=== PATIENT | female | born 1950 | race Caucasian/White ===

== ENCOUNTER 2017-11-22 10:32 | Emergency (ER) | payer OTHER ==
--- OUTSIDE RECORDS SUMMARY | 2017-11-22 10:34 | XMS REPORT | Continuity of Care Document ---
:1950 Author Organization Interface Problems Problem Status Onset Classification Date Comments Source Date Reported M25.561 - PAIN Active 10/27/19 [facility] IN RIGHT KNEE 17 [facility] M25.562 - P F17.200 - Active 11/30/19 [facility] "NICOTINE 16 [place] DEPENDENCE, UNSPECIF Z86.79 - Active 10/20/19 [facility] PERSONAL HISTORY 16 [place] OF OTHER DISE R41.82 - Active 09/14/19 [facility] "ALTERED MENTAL 16 [place] STATUS, UNSPECI 719.40 - JOINT Active 09/18/19 [facility] PAIN-UNSP 15 [place] CHRONIC PAIN Active 02/24/19 Condition 02/24/2014 [facility] SYNDROME 15 [facility] Chronic pain Active 02/24/19 Problem 10/29/2016 Data migrated [facility] syndrome<sup>1 from [facility] sup> Centricity on SMR 10/07/14. [facility] TAMERA Burgos SACROILIITIS, Active 01/22/20 Condition 02/24/2014 [facility] NOT ELSEWHERE 14 Neuro CLASSIFIED LUMBOSACRAL Active 01/22/20 Condition 02/24/2014 [facility] SPONDYLOSIS 14 Neuro WITHOUT MYELOPATHY Lumbosacral Active 01/22/20 Problem 10/29/2016 Data migrated [facility] spondylosis 14 from [facility] without Centricity on SMR myelopathy<sup>4 10/07/14. [place] </sup> [facility] OP[facility] Aubrey 724.4 - Active 01/16/20 [facility] LUMBOSACRAL JOSE CRUZ 14 [place] 953.5 - Active 01/01/20 [facility] LUMBOSACRAL PLE 14 [facility] KIMOD Sammy INJURY TO Active 12/28/19 Condition 02/24/2014 [facility] LUMBOSACRAL 14 Neuro PLEXUS LOW BACK PAIN Active 12/28/19 Condition 02/24/2014 [facility] 14 Neuro LUMBAR Active 12/28/19 Condition 02/24/2014 [facility] RADICULOPATHY 14 Neuro TOBACCO USER Active 12/28/19 Condition 02/24/2014 [facility] 14 Neuro Low back Active 12/28/19 Problem 10/29/2016 Data migrated [facility] pain<sup>2</sup> 14 from [facility] Centricity on SMR 10/07/14. [facility] [place]rey Lumbar Active 12/28/19 Problem 10/29/2016 Data migrated [facility] radiculopathy<cabral 14 from [facility], p>3</sup> Centricity on SMR 10/07/14. [facility] [place] Tobacco Active 12/28/19 Problem 10/29/2016 Data migrated [facility] user<sup>5</sup> 14 from [facility] Centricity on SMR 10/07/14. [facility] [place] RT HAND NERVE Active [facility] DAMAGE SX [id number] [facility] RT HAND INJURY Active [facility] LACERATION TO Active [facility] THE RT PALMAR [facility] Medications Medication Details Route Status Patient Ordering Order Source Instructions Provider Date MOBIC 7.5 MG TABS 1 tablet Active [facility] daily 015 Neuro GABAPENTIN 300 MG take one Active [facility] CAPS tab po qhs 014 Neuro x 3 nights, then one tab po bid x 3 days, then one tab po tid (has not yet taken the medication ) ADULT ONE DAILY Active [facility] GUMMIES CHEW 014 Neuro ALEVE TABS Active [facility] 014 Neuro ACETA-GESIC TABS Active [facility] 014 Neuro AMOXICILLIN CAPS Active [facility] 014 Neuro LEVOTHYROXINE qd Active [facility] SODIUM TABS 014 Neuro LEXAPRO 20 MG TABS qd Active [facility] 014 Neuro PROGESTERONE qd Active [facility] MICRONIZED 100 MG 014 Neuro CAPS VIVELLE-DOT PTTW bid Active [facility] 014 Neuro FLUDROCORTISONE every Active [facility] ACETATE 0.1 MG other day 014 Neuro TABS NEXIUM PACK qd Active [facility] 014 Neuro ADVIL PM TABS 2 to 3 Active [facility] daily 014 Neuro Allergies, Adverse Reactions, Alerts Substance Category Reaction Severity Reaction Status Date Comments Source type Reported ERYTHROMYCIN Drug ERYTHROMYCI [facility] allergy N 4 Neuro erythromycin Assertion Drug Active Data [facility] <sup>1</sup> allergy 4 migrated Sammy from [employer] on 10/06/14. Originally documented as ERYTHROMYC IN. Immunizations Immunization Date Given Site Status Last Updated Comments Source Results Order Name Results Value Reference Date Interpretation Comments Source Range Ankle 3 Ankle 3 EXAM: XR RIGHT ANKLE 3 VIEWS 10/26 - [facility] views DX views /2016 - [place] EXAM: XR RIGHT FOOT 3 VIEWS This report was dictated by a Supervisor Warping Department/Fellow. I have personally reviewed the images as well as the Resident's interpretation and agree with the findings. Read by: Pepe Fernández DO Resident: Pepe Fernández DO Dictated Date/time: 10/26/16 12:22 DATE: 10/26/2016 11:39 AM CDT Electronically Signed by: Tameka Harris MD 10/26/16 16:19 FINAL REPORT INDICATION: M25.561 Pain in right knee COMPARISON: None. TECHNIQUE: AP, oblique internal rotation and lateral radiographs of the ankle and foot UT SECTION: MSK FINDINGS: No acute fracture or malalignment is identified. No erosions, periostitis or ankylosis. Plantar calcaneal enthesophyte is present. Bipartite medial hallux sesamoid and os peroneum are incidentally noted. The ankle mortise is congruent. No soft tissue abnormality is identified. IMPRESSION: 1. No radiographic evidence of inflammatory arthropathy. 2. No acute fractures or malalignment of the right ankle and foot. 3. Small plantar enthesophyte. Knee 3 Knee 3 EXAM: XR BILATERAL KNEE 3 VIEWS 10/26 - [facility] Views Views /2016 - [place] Bilateral Bilateral This report was dictated by a Supervisor Warping Department/ Fellow. I have personally reviewed the images as DX DX well as the Resident's interpretation and agree with the findings. DATE: 10/26/2016 11:34 AM CDT Read by: Pepe Fernández DO Resident: Pepe Fernández DO Dictated Date/time: 10/26/16 12:36 Electronically Signed by: Tameka Harris MD 10/26/16 16:12 FINAL REPORT INDICATION: M25.561 Pain in right knee / M25.562 Pain in left knee COMPARISON: None. TECHNIQUE: Weightbearing standing AP, sunrise and lateral radiographs of both knees UT SECTION: MSK FINDINGS: Right knee: No erosions, periostitis or ankylosis seen. No acute fracture or malalignment is identified. Joint spaces are preserved. No knee joint effusion is present on either side. No soft tissue abnormality is identified. Left knee: No acute fracture or malalignment is identified. Joint spaces are preserved. No knee joint effusion is present on either side. No soft tissue abnormality is identified. IMPRESSION: 1. No radiographic evidence of inflammatory arthropathy. 2. No joint effusion. Foot Foot EXAM: XR RIGHT ANKLE 3 VIEWS 10/26 - [facility] series DX series Sammy EXAM: XR RIGHT FOOT 3 VIEWS This report was dictated by a Supervisor Warping Department/Fellow. I have personally reviewed the images as well as the Resident's interpretation and agree with the findings. Read by: Pepe Fernández DO Resident: Pepe Fernández DO Dictated Date/time: 10/26/16 12:22 DATE: 10/26/2016 11:39 AM CDT Electronically Signed by: Tameka Harris MD 10/26/16 16:19 FINAL REPORT INDICATION: M25.561 Pain in right knee COMPARISON: None. TECHNIQUE: AP, oblique internal rotation and lateral radiographs of the ankle and foot UT SECTION: MSK FINDINGS: No acute fracture or malalignment is identified. No erosions, periostitis or ankylosis. Plantar calcaneal enthesophyte is present. Bipartite medial hallux sesamoid and os peroneum are incidentally noted. The ankle mortise is congruent. No soft tissue abnormality is identified. IMPRESSION: 1. No radiographic evidence of inflammatory arthropathy. 2. No acute fractures or malalignment of the right ankle and foot. 3. Small plantar enthesophyte. Hand 3 Hand 3 EXAM: XR BILATERAL HAND 4 VIEWS 10/26 - [facility] views /2016 - [place] Bilateral Bilateral This report was dictated by a Supervisor Warping Department/ Fellow. I have personally reviewed the images as DX DX well as the Resident's interpretation and agree with the findings. 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 UT SECTION: MSK FINDINGS: No acute fracture or malalignment is identified. Bone mineral density are preserved. 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 Mild scattered degenerative changes of interphalangeal joints, most marked in the left second DIP. No periostitis, erosion or ankylosis is present. No soft tissue abnormality is identified. No radiopaque foreign bodies are present. IMPRESSION: 1. No acute radiographic evidence of inflammatory arthropathy. 2. No significant change in bilateral triscaphe joint osteoarthrosis. Brain wo Brain wo EXAM: MRI BRAIN WITHOUT CONTRAST 10/12 - [facility] contrast contrast /2015 - [place] MRI MRI DATE: 10/13/2015 1:25 PM CDT Read by: Charlotte Rudolph MD Dictated Date/time: 10/13/15 15:58 Electronically Signed by: Charlotte Rudolph MD 10/13/15 16:05 FINAL REPORT INDICATION: R41 ALTERED MENTAL STATUS UNSPECIFIED, R42 DIZZINESS AND GIDDINESS COMPARISON: None. TECHNIQUE: Multiplanar, muti sequence MRI of the brain without contrast. IV contrast: None. FINDINGS: No restricted diffusion to suggest recent ischemia. No recent intracranial hemorrhage or mass effect. No extra-axial fluid collections. Foci of T2 and FLAIR hyperintense signal abnormality in the suprat entorial white matter are nonspecific but may represent mild chronic microangiopathic change. Punctate focus of susceptibility in the left parietotemporal region may represent a chronic microhemorrhage. Mild generalized cerebral volume loss with compensatory enlargement of ventricles and sulci. The basal cisterns are patent. The major intracranial flow voids are preserved. The midline structures are u nremarkable. Cerebellar tonsils are normal in position. The orbits and mastoids are unremarkable. Nasal septal deviation to the right. Rightward projecting nasal septal spur has a contact point with the right inferior turbinate. IMPRESSION: 1. No acute intracranial abnormality. 2. Mild generalized cerebral volume loss. Mild chronic microangiopathic change. 3. Nasal septal deviation to the right with a rightward projecting nasal septal spur exiting the right inferior turbinate. Hand 3 Hand 3 EXAM: XR BILATERAL HAND 3 VIEWS 09/17 - [facility] views views /2014 - [place] Bilateral Bilateral DX DX DATE: 09/17/2014 at 1126 hours Read by: Tyra Urban MD Dictated Date/time: 09/17/14 12:36 Electronically Signed by: Tyra Urban MD 09/17/14 12:38 FINAL REPORT INDICATION: 719.40 Pain in Joint, Site Unspecified COMPARISON: None available. TECHNIQUE: PA, lateral and oblique radiographs of the bilateral hands FINDINGS: No fracture, dislocation or other acute bony abnormality is identified. There is moderate joint space narrowing, sclerosis and cystic change at the triscaphe articulation on the left, and sev ere narrowing on the right. Mild interphalangeal joint space narrowing is present with tiny osteophytes at the DIP joints bilaterally. No erosions are identified. Soft tissues are within normal limits. 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 Mild interphalangeal joint narrowing. Pelvis wo Pelvis wo Examination: MRI of the pelvis without contrast 03/03 [facility] contrast contrast /2014 - [place] [facility] MRI History: 338.4 Chronic Pain Syndrome Read by: Koby Lindsey MD Dictated Date/time: 03/03/14 14:45 Electronically Signed by: Koby Lindsey MD 03/03/14 14:55 FINAL REPORT Comparison: None. TECHNIQUE: Multiplanar, multisequence magnetic resonance imaging of the pelvis was performed without administration of intravenous gadolinium contrast. Findings: No acute bony fracture, joint dislocation, or stress-related marrow edema is seen. No suspicious osseous lesions are noted. The hips, symphysis, and sacroiliac joints are unremarkable. Moderat e to severe facet arthrosis in the visualized lower lumbar spine is seen. There is subtle patchy STIR hyperintensity of the visualized right paraspinous musculature at the level of the sacrum. The remaining muscles and tendons about the pelvis are intact. The gluteal tendons, iliopsoas tendon insertions, and hamstring tendons are intact. No extracapsular mass or bursal fluid collection is seen. Limited views of the pelvic organs show no focal abnormality. IMPRESSION: 1. Subtle signal abnormality of the right paraspinous musculature at the level of the sacrum. This is of indeterminate significance and may be iatrogenic. Other considerations may also include low grade strains or contusions. SL: 16 Hip wo Hip wo Examination: MRI of the right hip without contrast 03/03 - [facility] contrast contrast /2014 - [place] [facility] MRI History: 338.4 Chronic Pain Syndrome Read by: Koby Lindsey MD Dictated Date/time: 03/03/14 14:51 Electronically Signed by: Koby Lindsey MD 03/03/14 14:54 FINAL REPORT Comparison: MRI of the pelvis performed the same day. TECHNIQUE: Multiplanar, multisequence magnetic resonance imaging of the right hip was performed without administration of intravenous gadolinium contrast. Findings: Anatomic alignment is maintained across the right hip. No acute bony fracture, joint dislocation, or stress-related marrow edema is seen. There is no evidence of osteonecrosis of the femoral h ead. Physiologic right hip joint fluid is seen. No acetabular labral tear is seen. Focal high-grade chondral fissuring of the superior acetabulum is seen measuring 5 mm AP dimension and 6 mm transversel y. The ligamentum teres and transverse ligament are intact. The gluteal tendons, iliopsoas tendon insertion, and hamstring tendon at the origin are intact. No extracapsular mass or bursal fluid collection is seen. Limited views of the pelvic organs show no focal abnormality. IMPRESSION: 1. Focal high-grade chondral fissuring of the superior acetabular measuring 5 x 6 mm. SL: 16 Vital Signs Vital Sign Value Date Comments Source Systolic (mm Hg) 126 02/24/2014 [facility] Diastolic (mm Hg) 73 02/24/2014 [facility] Weight 160 02/24/2014 [facility] Height 65 02/24/2014 [facility] Heart Rate 73 02/24/2014 [facility] Temperature Oral (F) 98.4 F 02/24/2014 [facility] Systolic (mm Hg) 133 01/21/2014 [facility] Diastolic (mm Hg) 78 01/21/2014 [facility] Heart Rate 70 01/21/2014 [facility] Temperature Oral (F) 98.1 F 01/21/2014 [facility] Weight 159.2 01/15/2014 [facility] Systolic (mm Hg) 108 01/15/2014 [facility] Diastolic (mm Hg) 68 01/15/2014 [facility] Height 65 01/15/2014 [facility] Temperature Oral (F) 98.4 F 01/15/2014 [facility] Heart Rate 81 01/15/2014 [facility] Weight 157.8 01/15/2014 [facility] Height 65 01/15/2014 [facility] Temperature Oral (F) 97.7 F 01/15/2014 [facility] Heart Rate 86 01/15/2014 [facility] Systolic (mm Hg) 112 01/15/2014 [facility] Diastolic (mm Hg) 72 01/15/2014 [facility] Respitory Rate 16 01/15/2014 [facility] Weight 153.0 12/27/2013 [facility] Height 65 12/27/2013 [facility] Temperature Oral (F) 97.9 F 12/27/2013 [facility] Heart Rate 69 12/27/2013 [facility] Systolic (mm Hg) 119 12/27/2013 [facility] Diastolic (mm Hg) 68 12/27/2013 [facility] Respitory Rate 16 12/27/2013 [facility] Encounters Location Location Encounter Encounter Reason Attending ADM DC Status Source Details Type Number For Provider Date Date Visit [facility] [id number] Frederick 12/27 12/27 [facility] Visit [address] EDGAR /2013 Neuro [facility] Report [id number] Frederick 01/05 01/05 Renuka Christianson [address] EDGAR /2013 [facility] [id number] Frederick 01/15 01/15 [facility] Visit 9[address] EDGAR /2013 [facility] [id number] Frederick 01/21 01/21 [facility] Procedure 76[address] EDGAR /2013 [facility] Di[facility] [id number] Frederick 01/21 01/22 [facility] G[facility] /2013 [facility] [id number] Frederick 02/24 02/24 [facility] Visit 12[address] EDGAR /2014 [facility] [id number] Jessica 03/03 03/04 [facility] [place] [facility] [id number] Mariana 09/17 09/18 [facility] Outpatient [facility] [place] /2014 [place] [facility] [place] [facility] [id number] Michael 12/10 01/09 [facility] [place] [facility] [place] /2014 [facility] OP Therapy [id number] Michael 01/09 02/08 [facility] [place] [facility] [place] /2014 [facility]MR OP Therapy [id number] Michael 02/18 03/20 S[facility] [place] [facility] [place] /2015 [facility] Outpt Diag [id number] Azul 10/12 10/13 [facility] Outpatient Services Krell /2015 [facility] Outpt Diag [id number] Gemini 10/26 10/27 [facility] Outpatient Services [facility] /2016 [facility] Outpatient [id number] AZUL 02/14 Active [facility] /2017 [place] [facility] [id number] AZUL 05/05 Active [facility] /2017 [facility] Outpatient [id number] AZUL 08/04 Active [facility] /2017 [place] Outpatient [id number] AZUL 11/10 Active [facility] /2017 [place] Outpatient [id number] AZUL 03/23 Active [facility] /2018 [place] Procedures Procedure Code Date Perfomer Comments Source smoking/tobacco 14 02/24/2014 yes [facility] cessation, patient education and counseling smoking/tobacco 14 01/15/2014 no [facility] cessation, patient education and counseling smoking/tobacco 14 12/27/2013 yes [facility] cessation, patient education and counseling
--- OUTSIDE RECORDS SUMMARY | 2017-11-22 10:35 | XMS REPORT | Continuity of Care Document ---
:1950 Author Organization [facility] Care Team Providers Name Role Phone Frederick Farah MD Unavailable Insurance Providers Payer name Policy type / Policy ID Covered constitution party ID Policy [place] Coverage type [place]IC[place] [employer] (INDEMNITY) Encounters Encounter Performer Location Date Office Visit Frederick Farah MD [facility] Jan 15, 2014 Allergies, Adverse Reactions, Alerts Type Substance Reaction Status Drug allergy ERYTHROMYCIN Active Problems Problem Effective Dates Problem Status INJURY TO LUMBOSACRAL PLEXUS Dec 27, 2013 Active LOW BACK PAIN Dec 27, 2013 Active LUMBAR RADICULOPATHY Dec 27, 2013 Active TOBACCO USER Dec 27, 2013 Active Procedures Date Description Comments Dec 26, 2013 smoking status current every day smoker Dec 27, 2013 smoking status Current every day smoker Dec 27, 2013 smoking/tobacco cessation, patient education yes and counseling Jan 15, 2014 smoking status Current every day smoker Jan 15, 2014 smoking/tobacco cessation, patient education no and counseling Jan 15, 2014 smoking status Current every day smoker Medications Medication Instructions Start Date Status LEVOTHYROXINE SODIUM TABS qd Dec 27, 2013 Active LEXAPRO 20 MG TABS qd Dec 27, 2013 Active PROGESTERONE MICRONIZED 100 MG CAPS qd Dec 27, 2013 Active VIVELLE-DOT PTTW bid Dec 27, 2013 Active FLUDROCORTISONE ACETATE 0.1 MG TABS every other day Dec 27, 2013 Active NEXIUM PACK qd Dec 27, 2013 Active ADVIL PM TABS 2 to 3 daily Dec 27, 2013 Active ADULT ONE DAILY GUMMIES CHEW Jan 15, 2014 Active ALEVE TABS Jan 15, 2014 Active ACETA-GESIC TABS Jan 15, 2014 Active AMOXICILLIN CAPS Jan 15, 2014 Active Vital Signs Date Description Test Result Dec 27, 2013 weight E&M - 3141-9 WEIGHT 153.0 lb Dec 27, 2013 height E&M - 8302-2 HEIGHT 65 in Dec 27, 2013 temperature E&M TEMPERATURE 97.9 deg f Dec 27, 2013 pulse rate E&M - 8867-4 PULSE RATE 69 /min Dec 27, 2013 blood pressure, systolic - 8480-6 BP SYSTOLIC 119 mm Hg Dec 27, 2013 blood pressure, diastolic - 8462-4 BP DIASTOLIC 68 mm Hg Dec 27, 2013 respiratory rate E&M - 9279-1 RESP RATE 16 /min Jan 15, 2014 weight E&M - 3141-9 WEIGHT 157.8 lb Jan 15, 2014 height E&M - 8302-2 HEIGHT 65 in Jan 15, 2014 temperature E&M TEMPERATURE 97.7 deg f Jan 15, 2014 pulse rate E&M - 8867-4 PULSE RATE 86 /min Jan 15, 2014 blood pressure, systolic - 8480-6 BP SYSTOLIC 112 mm Hg Jan 15, 2014 blood pressure, diastolic - 8462-4 BP DIASTOLIC 72 mm Hg Jan 15, 2014 weight E&M - 3141-9 WEIGHT 159.2 lb Jan 15, 2014 blood pressure, systolic - 8480-6 BP SYSTOLIC 108 mm Hg Jan 15, 2014 blood pressure, diastolic - 8462-4 BP DIASTOLIC 68 mm Hg Jan 15, 2014 height E&M - 8302-2 HEIGHT 65 in Jan 15, 2014 temperature E&M TEMPERATURE 98.4 deg f Jan 15, 2014 pulse rate E&M - 8867-4 PULSE RATE 81 /min Jan 15, 2014 respiratory rate E&M - 9279-1 RESP RATE 16 /min
--- OUTSIDE RECORDS SUMMARY | 2017-11-22 10:35 | XMS REPORT | Summary of Care ---
:1950 Author Organization [facility] Encounter HQ Encntr_loretta(FIN) [id number] Date(s): 02/18/15 - 03/19/15 [facility] Discharge Disposition: Home Attending Physician: Michael Louie MD Vital Signs No data available for this section Problem List Condition Effective Dates Status Health Status Informant Chronic pain syndrome1 02/24/14 Active Low back pain2 12/27/13 Active Lumbar radiculopathy3 12/27/13 Active Lumbosacral spondylosis without 01/21/14 Active myelopathy4 Tobacco user5 12/27/13 Active 1Data migrated from [employer] on 10/07/14.2Data migrated from [employer] on 10/07/14.3Data migrated from [employer] on 10/07/14.4Data migrated from [employer] on 10/07/14.5Data migrated from [employer] on 10/07/14. Allergies, Adverse Reactions, Alerts Substance Reaction Severity Status erythromycin1 Active 1Data migrated from [employer] on 10/06/14. Originally documented as ERYTHROMYCIN. Medications No data available for this section Results No data available for this section Immunizations No data available for this section Procedures No data available for this section Social History No data available for this section Assessment and Plan No data available for this section
--- OUTSIDE RECORDS SUMMARY | 2017-11-22 10:35 | XMS REPORT | Summary of Care ---
:1950 Author Encounter HQ Gustavontr_michaelnita(ANTON) [id number] Date(s): 01/21/14 - 01/21/[address] [facility] Outpatient Imaging [facility] [address] [place] [address] Discharge Disposition: Home Physician Attending: Frederick Farah MD Reason for Visit 724.4 - LUMBOSACRAL JOSE CRUZ Problem List No data available for this section Allergies, Adverse Reactions, Alerts No data available for this section Medications No data available for this section Medications Administered During Your Visit No data available for this section Immunizations No data available for this section
--- OUTSIDE RECORDS SUMMARY | 2017-11-22 10:35 | XMS REPORT | Continuity of Care Document ---
:1950 Author Organization [facility] Care Team Providers Name Role Phone Frederick Farah MD Unavailable Insurance Providers Payer name Policy type / Policy ID Covered republican ID Policy [place] Coverage type [place] [employer] (INDEMNITY) Encounters Encounter Performer Location Date Office Visit Frederick Farah MD [facility] [place] [facility] Jan 15, 2014 Allergies, Adverse Reactions, [...] smoking/tobacco cessation, patient education no and counseling Medications Medication Instructions Start Date Status LEVOTHYROXINE [...]
--- OUTSIDE RECORDS SUMMARY | 2017-11-22 10:35 | XMS REPORT | Summary of Care ---
:1950 Author Organization [facility] Outpatient Imaging - [facility] Address [address] [place] [id number]- Encounter HQ Encntr_alias(FIN) [id number] Date(s): 10/13/15 - 10/13/15 [facility] Outpatient Imaging - [address] [place] [address]- Discharge Disposition: Home or Self Care Attending Physician: Nash Stern MD Vital Signs No data available for [...]
--- OUTSIDE RECORDS SUMMARY | 2017-11-22 10:35 | XMS REPORT | Continuity of Care Document ---
:1950 Author Organization [facility] Care Team Providers Name Role Phone Frederick Farah MD Unavailable Insurance Providers Payer name Policy type / Policy ID Covered alliance party ID Policy [place] Coverage type [place] [employer] (INDEMNITY) Encounters Encounter Performer Location Date Office Visit Frederick Farah MD [facility] [place] Dec 27, 2013 Allergies, Adverse Reactions, Alerts Type Substance Reaction [...] smoking/tobacco cessation, patient education yes and counseling Medications Medication Instructions Start Date [...] to 3 daily Dec 27, 2013 Active Vital Signs Date Description Test Result [...]
--- OUTSIDE RECORDS SUMMARY | 2017-11-22 10:35 | XMS REPORT | Continuity of Care Document ---
:1950 Author Organization [facility] Care Team Providers Name Role Phone Gagan EDGAR, Frederick Bryant Unavailable Insurance Providers Payer name Policy type / Policy ID Covered constitution party ID Policy [place] Coverage type [place] [employer] (INDEMNITY) Encounters Encounter Performer Location Date Lab Report Frederick Farah MD [facility] - Jan 05, 2014 [place] Allergies, Adverse Reactions, Alerts Type Substance Reaction [...]
--- OUTSIDE RECORDS SUMMARY | 2017-11-22 10:35 | XMS REPORT | Summary of Care ---
:1950 Author Organization [facility] Outpatient Imaging [place] Address [address] [place], [place] [address]- Encounter HQ Encntr_alias(FIN) [id number] Date(s): 10/26/16 - 10/26/16 [facility] Outpatient Imaging [address] [address]- [phone] Discharge Disposition: Home or Self Care Attending Physician: Gemini Chang MD Vital Signs No data available for [...]
--- OUTSIDE RECORDS SUMMARY | 2017-11-22 10:35 | XMS REPORT | Continuity of Care Document ---
:1950 Author Organization [facility] Care Team Providers Name Role Phone Frederick Farah MD Unavailable Insurance Providers Payer name Policy type / Policy ID Covered alliance party ID Policy [place] Coverage type [place] [employer] (INDEMNITY) Encounters Encounter Performer Location Date Office Visit Frederick Farah MD [facility] [place] Feb 24, 2014 Allergies, Adverse Reactions, Alerts Type Substance Reaction Status Drug allergy ERYTHROMYCIN Active Problems Problem Effective Dates Problem Status INJURY TO LUMBOSACRAL PLEXUS Dec 27, 2013 Active LOW BACK PAIN Dec 27, 2013 Active LUMBAR RADICULOPATHY Dec 27, 2013 Active TOBACCO USER Dec 27, 2013 Active SACROILIITIS, NOT ELSEWHERE CLASSIFIED Jan 21, 2014 Active LUMBOSACRAL SPONDYLOSIS WITHOUT MYELOPATHY Jan 21, 2014 Active CHRONIC PAIN SYNDROME Feb 24, 2014 Active Procedures Date Description Comments Dec 26, 2013 smoking status current every day smoker Dec 27, 2013 smoking status Current every day smoker Dec 27, 2013 smoking/tobacco cessation, patient education yes and counseling Jan 15, 2014 smoking status Current every day smoker Jan 15, 2014 smoking/tobacco cessation, patient education no and counseling Jan 15, 2014 smoking status Current every day smoker Feb 24, 2014 smoking status Current every day smoker Feb 24, 2014 smoking/tobacco cessation, patient education yes and counseling Medications Medication Instructions Start Date Status LEVOTHYROXINE SODIUM TABS qd Dec 27, 2013 Active LEXAPRO 20 MG TABS qd Dec 27, 2013 Active PROGESTERONE MICRONIZED 100 MG qd Dec 27, 2013 Active CAPS VIVELLE-DOT PTTW bid Dec 27, 2013 Active FLUDROCORTISONE ACETATE 0.1 MG every other day Dec 27, 2013 Active TABS NEXIUM PACK qd Dec 27, 2013 Active ADVIL PM TABS 2 to 3 daily Dec 27, 2013 Active ADULT ONE DAILY GUMMIES CHEW Jan 15, 2014 Active ALEVE TABS Jan 15, 2014 Active ACETA-GESIC TABS Jan 15, 2014 Active AMOXICILLIN CAPS Jan 15, 2014 Active GABAPENTIN 300 MG CAPS take one tab po qhs x 3 nights, Jan 29, 2014 Active then one tab po bid x 3 days, then one tab po tid (has not yet taken the medication) MOBIC 7.5 MG TABS 1 tablet daily Feb 24, 2014 Active Vital Signs Date Description Test Result Dec 27, 2013 weight Lakesha - 3141-9 WEIGHT 153.0 lb Dec 27, [...] RATE 16 /min Jan 15, 2014 weight Lakesha - 3141-9 WEIGHT 157.8 lb Jan 15, [...] 72 mm Hg Jan 15, 2014 weight Rory&Mary - 3141-9 WEIGHT 159.2 lb Jan 15, [...] - 9279-1 RESP RATE 16 /min Jan 21, 2014 blood pressure, systolic - 8480-6 BP SYSTOLIC 133 mm Hg Jan 21, 2014 blood pressure, diastolic - 8462-4 BP DIASTOLIC 78 mm Hg Jan 21, 2014 pulse rate E&M - 8867-4 PULSE RATE 70 /min Jan 21, 2014 blood pressure, systolic, second observation BP SYS #2 126 mm Hg Jan 21, 2014 blood pressure, diastolic, second observation BP HARRIS #2 88 mm Hg Jan 21, 2014 pulse rate #2 PULSE RATE#2 66 null Jan 21, 2014 blood pressure, systolic, third observation BP SYS #3 111 mm Hg Jan 21, 2014 blood pressure, diastolic, third observation BP HARRIS #3 47 mm Hg Jan 21, 2014 pulse rate #3 PULSE RATE#3 67 null Jan 21, 2014 temperature E&M TEMPERATURE 98.1 deg f Jan 21, 2014 blood pressure, systolic, fourth observation BP SYS #4 121 mm Hg Jan 21, 2014 blood pressure, diastolic, fourth observation BP HARRIS #4 79 mm Hg Jan 21, 2014 pulse rate #4 PULSE RATE#4 69 /min Jan 21, 2014 blood pressure, systolic, fifth observation BP SYS #5 111 mm Hg Jan 21, 2014 blood pressure, diastolic, fifth observation BP HARRIS #5 78 mm Hg Jan 21, 2014 pulse rate #5 PULSE RATE#5 75 /min Feb 24, 2014 blood pressure, systolic - 8480-6 BP SYSTOLIC 126 mm Hg Feb 24, 2014 blood pressure, diastolic - 8462-4 BP DIASTOLIC 73 mm Hg Feb 24, 2014 weight E&M - 3141-9 WEIGHT 160 lb Feb 24, 2014 height E&M - 8302-2 HEIGHT 65 in Feb 24, 2014 pulse rate E&M - 8867-4 PULSE RATE 73 /min Feb 24, 2014 temperature E&M TEMPERATURE 98.4 deg f
--- OUTSIDE RECORDS SUMMARY | 2017-11-22 10:35 | XMS REPORT | Summary of Care ---
:1950 Author Encounter HQ Dharmeshr_michaelnita(ANTON) [id number] Date(s): 03/03/14 - 03/03/14 [facility] Outpatient Imaging [address] Discharge Disposition: Home Physician Attending: Jessica Cabral MD Reason for Visit 338.4 - CHRONIC PAIN SY Problem List No data available for this section Allergies, Adverse Reactions, Alerts No data available for this section Medications No data available for this section Medications Administered During Your Visit No data available for this section Immunizations No data available for this section
--- OUTSIDE RECORDS SUMMARY | 2017-11-22 10:35 | XMS REPORT | Summary of Care ---
:1950 Author Organization [facility] Outpatient Imaging [place] Address [address] [place], [place] [address]- Encounter HQ Encntr_alias(FIN) [id number] Date(s): 09/17/14 - 09/17/14 [facility] Outpatient Imaging [place] [address] [place] [address]- [phone] Discharge Disposition: Home Attending Physician: Mariana Villanueva MD Vital Signs No data available for this section Problem List No data available for this [...]
--- OUTSIDE RECORDS SUMMARY | 2017-11-22 10:35 | XMS REPORT | Summary of Care ---
:1950 Author Organization [facility] Encounter HQ Encntr_loretta(FIN) [id number] Date(s): 01/09/15 - 02/07/15 [facility] Discharge Disposition: Home Attending Physician: Michael Louie [...]
--- OUTSIDE RECORDS SUMMARY | 2017-11-22 10:35 | XMS REPORT | Continuity of Care Document ---
:1950 Author Organization [facility] Care Team Providers Name Role Phone Frederick Farah MD Unavailable Insurance Providers Payer name Policy type / Policy ID Covered green party ID Policy [place] Coverage type [place] [employer] A[employer] (INDEMNITY) Encounters Encounter Performer Location Date Office Procedure Frederick Farah MD [facility] Jan 21, 2014 Allergies, Adverse Reactions, Alerts Type Substance Reaction Status Drug allergy ERYTHROMYCIN Active Problems Problem Effective Dates Problem Status INJURY TO LUMBOSACRAL PLEXUS Dec 27, 2013 Active LOW BACK PAIN Dec 27, 2013 Active LUMBAR RADICULOPATHY Dec 27, 2013 Active TOBACCO USER Dec 27, 2013 Active SACROILIITIS, NOT ELSEWHERE CLASSIFIED Jan 21, 2014 Active LUMBOSACRAL SPONDYLOSIS WITHOUT MYELOPATHY Jan 21, 2014 Active Procedures Date Description Comments Dec [...]
--- OUTSIDE RECORDS SUMMARY | 2017-11-22 10:35 | XMS REPORT | Summary of Care ---
:1950 Author Organization [facility] Encounter HQ Encntr_loretta(FIN) [id number] Date(s): 12/10/14 - 01/08/15 [facility] Discharge Disposition: Home Attending Physician: Michael Louie [...]
--- NOTE | 2017-11-22 13:30 | ER ---
Nurse's Notes [facility] Name: Kamilah Ward Age: 66 yrs Sex: Female : 1950 Arrival Date: 11/22/2017 Time: 10:34 Bed 17 Private MD: Diagnosis: Local infection of the skin and subcutaneous tissue, unspecified Presentation: 11/22 10:49 Presenting complaint: Patient states: "yesterday I starting having these big welts, aj1 they itch and they're warm. It's mostly on my legs, and its on my arms. This morning they've started to blister" Patient started taking amoxicillin from an infection on her left thigh. Transition of care: patient was not received from another setting of care. Onset of symptoms was November 21, 2017. Risk Assessment: Do you want to hurt yourself or someone else? Patient reports no desire to harm self or others. Initial Sepsis Screen: Does the patient meet any 2 criteria? No. Patient's initial sepsis screen is negative. Does the patient have a suspected source of infection? No. Patient's initial sepsis screen is negative. Care prior to arrival: None. 10:49 Method Of Arrival: Ambulatory aj1 10:56 Acuity: MARCIO 3 aj1 Triage Assessment: 10:53 General: Appears in no apparent distress. comfortable, Behavior is calm, cooperative, aj1 appropriate for age. Pain: Complains of pain in right leg and left leg Pain currently is 2 out of 10 on a pain scale. Neuro: Level of Consciousness is awake, alert, obeys commands. Cardiovascular: Patient's skin is warm and dry. Respiratory: Airway is patent Respiratory effort is even, unlabored, Respiratory pattern is regular, symmetrical. Historical: - Allergies: 10:53 arithromycin; aj1 - PMHx: 10:53 benign fesiculation and cramping; Hypothyroidism; aj1 - Immunization history:: Adult Immunizations up to date. - Ebola Screening: : No symptoms or risks identified at this time. - Social history:: Smoking status: unknown. Screenin:23 Abuse screen: Denies threats or abuse. Denies injuries from another. Nutritional sv screening: No deficits noted. Tuberculosis screening: No symptoms or risk factors identified. Fall Risk None identified. Assessment: 13:23 General: Appears in no apparent distress. comfortable, well developed, Behavior is sv calm, cooperative, appropriate for age. Pain: Denies pain. Neuro: Level of Consciousness is awake, alert, obeys commands, Oriented to person, place, time, situation, Moves all extremities. Full function Gait is steady. Cardiovascular: Patient's skin is warm and dry. Respiratory: Respiratory effort is even, unlabored, Respiratory pattern is regular, symmetrical. Derm: Skin is pink, warm \\T\\ dry. Wound noted lateral aspect of left thigh Wound is Pt stated that she had a spot removed d/t basal cell carcinoma. Reported that it started looking red and was put on Amoxicillin. Pt has a bandaid on it at this time. Rash noted that is red, raised, urticaria, on right leg and left leg. Musculoskeletal: No signs and/or symptoms reported regarding the musculoskeletal system. Vital Signs: 10:53 BP 129 / 79; Pulse 81; Resp 18; Temp 97.7; Pulse Ox 99% on R/A; Weight 77.11 kg (R); aj1 Height 5 ft. 5 in. (165.10 cm); Pain 3/10; 10:53 Body Mass Index 28.29 (77.11 kg, 165.10 cm) aj1 ED Course: 10:34 Patient arrived in ED. as 10:53 Arm band placed on. aj1 10:56 Triage completed. aj1 13:14 Katheryn Camp, JACK is Primary Nurse. sv 13:15 Lowell Diamond PA is PHCP. cp 13:15 Eron Flor MD is Attending Physician. cp 13:23 Patient has correct armband on for positive identification. Placed in gown. Bed in low sv position. Call light in reach. Door closed. Warm blanket given. Head of bed elevated. 13:33 Wound Culture Sent. sv 13:33 Wound culture swab sent to lab. jp3 13:48 No provider procedures requiring assistance completed. Patient did not have IV access sv during this emergency room visit. Administered Medications: No medications were administered Outcome: 13:30 Discharge ordered by . cp 13:48 Discharged to home ambulatory. sv 13:48 Condition: stable 13:48 Discharge instructions given to patient, Instructed on discharge instructions, follow up and referral plans. medication usage, Demonstrated understanding of instructions, follow-up care, medications, Prescriptions given X 1. 13:48 Patient left the ED. sv Signatures: Yadi Farah RN RN aj1 Katheryn Camp, RN RN kelly Griffin, Lowell Mclaughlin PA PA cp Pisarski, Jacob jp3
--- NOTE | 2017-11-22 13:30 | EDPHYS ---
Physician Documentation [facility] Name: Kamilah Ward Age: 66 yrs Sex: Female : 1950 Arrival Date: 11/22/2017 Time: 10:34 Bed 17 Private MD: ED Physician Eron Flor HPI: 11/22 13:25 This 66 yrs old Female presents to ER via Ambulatory with complaints of Rash. cp 13:25 The patient's rash thought to be caused by an unknown cause. The rash is located on the cp right leg and left leg. The rash can be described as bullous, erythematous. 13:25 Onset: The symptoms/episode began/occurred yesterday. cp 13:25 Associated signs and symptoms: Pertinent negatives: fever. Treatment given at home: cp started taking oral Amoxicillin. Historical: - Allergies: 10:53 arithromycin; aj1 - PMHx: 10:53 benign fesiculation and cramping; Hypothyroidism; aj1 - Immunization history:: Adult Immunizations up to date. - Ebola Screening: : No symptoms or risks identified at this time. - Social history:: Smoking status: unknown. ROS: 13:25 Eyes: Negative for injury, pain, redness, and discharge. cp 13:25 Constitutional: Negative for body aches, chills, fever, poor PO intake. 13:25 ENT: Negative for drainage from ear(s), ear pain, sore throat, difficulty swallowing, difficulty handling secretions. 13:25 Cardiovascular: Negative for chest pain, palpitations. 13:25 Respiratory: Negative for cough, shortness of breath, wheezing. 13:25 Skin: Positive for rash, of the right leg and left leg. 13:25 All other systems are negative. Exam: 13:26 Head/Face: Normocephalic, atraumatic. cp 13:26 Constitutional: The patient appears in no acute distress, alert, awake, non-toxic, well developed, well nourished. 13:26 Eyes: Periorbital structures: appear normal, Conjunctiva: normal, no exudate, no injection, Lids and lashes: appear normal, bilaterally. 13:26 ENT: External ear(s): are unremarkable, Nose: is normal, Mouth: Lips: moist, Oral mucosa: moist. 13:26 Chest/axilla: Inspection: normal. 13:26 Cardiovascular: Rate: normal. 13:26 Respiratory: the patient does not display signs of respiratory distress, Respirations: normal, no use of accessory muscles, no retractions, no splinting, no tachypnea, labored breathing, is not present. 13:26 Abdomen/GI: Inspection: abdomen appears normal. 13:26 Skin: rash can be described as erythematous, on the right leg and left leg. Vital Signs: 10:53 BP 129 / 79; Pulse 81; Resp 18; Temp 97.7; Pulse Ox 99% on R/A; Weight 77.11 kg (R); aj1 Height 5 ft. 5 in. (165.10 cm); Pain 3/10; 10:53 Body Mass Index 28.29 (77.11 kg, 165.10 cm) aj1 MDM: 13:15 Patient medically screened. cp 13:20 Differential diagnosis: varicella, allergic reaction, cellulitis, abscess. cp 13:30 Data reviewed: vital signs, nurses notes, and as a result, I will discharge patient. cp 13:30 Counseling: I had a detailed discussion with the patient and/or guardian regarding: the cp historical points, exam findings, and any diagnostic results supporting the discharge/admit diagnosis, the need for outpatient follow up, a family practitioner, to return to the emergency department if symptoms worsen or persist or if there are any questions or concerns that arise at home. 11/22 13:22 Order name: Wound Culture sv Administered Medications: No medications were administered Disposition: 18:18 Co-signature as Attending Physician, Eron Flor MD. Disposition: 11/22/17 13:30 Discharged to Home. Impression: Local infection of the skin and subcutaneous tissue, unspecified. - Condition is Stable. - Discharge Instructions: Cellulitis, Adult. - Prescriptions for Bactrim DS 800- 160 mg Oral Tablet - take 1 tablet by ORAL route every 12 hours for 10 days; 20 tablet. - Medication Reconciliation Form, Thank You Letter, Antibiotic Education, Prescription Opioid Use form. - Follow up: Private Physician; When: 5 - 6 days; Reason: rash persists. - Problem is new. - Symptoms are unchanged. Signatures: Dispatcher Med[employer] Yadi Rios RN RN aj1 Katheryn Camp RN RN sv Lowell Diamond PA PA cp Starr, Gregory, MD MD Corrections: (The following items were deleted from the chart) 13:48 13:30 11/22/2017 13:30 Discharged to Home. Impression: Local infection of the skin and sv subcutaneous tissue, unspecified. Condition is Stable. Forms are Medication Reconciliation Form, Thank You Letter, Antibiotic Education, Prescription Opioid Use. Follow up: Private Physician; When: 5 - 6 days; Reason: rash persists. Problem is new. Symptoms are unchanged. cp
[2017-11-22 13:52] VITALS: BP 129/79; TEMP 97.7; O2SAT 99
== END 2017-11-22 13:48 | disposition home or self-care (01) ==
LOC: ER 10:32
DX: L08.9 Local infection of the skin and subcutaneous tissue, unspecified (principal); Z88.1 Allergy status to other antibiotic agents
CPT/HCPCS: 87070; 87077; 87186; 87205; 99283